=== PATIENT | male | born 1980 | race American Indian/Alaskan Native ===

== ENCOUNTER 2016-08-14 02:36 | Emergency (ER) | payer MEDICAID ==
[2016-08-14 02:55] VITALS: BP 136/78; PULSE 96; RESP 16; TEMP 98.7; O2SAT 98
--- NOTE | 2016-08-14 03:21 | ED PDOC ---
HPI: Abdomen Time Seen by Provider: 08/14/16 02:41 Chief Complaint (Nursing): Abdominal Pain Chief Complaint (Provider): Abdominal pain, vomiting History Per: Patient History/Exam Limitations: no limitations Onset/Duration Of Symptoms: Days (x3days) Current Symptoms Are (Timing): Still Present Associated Symptoms: Nausea, Vomiting, Diarrhea Additional Complaint(s): Kurt Yadav is a 35 y/o male who presents to the ED from work for evaluation of vomiting along with some associated episodes of abdominal pain(has since resolved) nausea and diarrhea. Patient reports 3 days ago he ate something bad and has since been experiencing an upset stomach. Denies any other associated symptoms. Of note, patient is asking for medication to control the nausea. Past Medical History Reviewed: Historical Data, Nursing Documentation, Vital Signs Vital Signs: Last Vital Signs Temp 98.7 F 08/14/16 02:53 Pulse 96 H 08/14/16 02:53 Resp 16 08/14/16 02:53 BP 136/78 08/14/16 02:53 Pulse Ox 98 08/14/16 04:16 - Medical History PMH: No Chronic Diseases - Surgical History Surgical History: No Surg Hx - Family History Family History: States: Unknown Family Hx - Immunization History Hx Tetanus Toxoid Vaccination: No Hx Influenza Vaccination: No Hx Pneumococcal Vaccination: No - Home Medications Home Medications: Ambulatory Orders Medication Instructions Recorded Diphenhydramine HCl 50 mg PO QPM #20 cap 11/01/13 [Diphenhydramine] Clotrimazole 1% Cream [Lotrimin 1%] 1 applic TP BID #1 bottle 07/22/15 Ondansetron [Zofran] 4 mg PO Q8H #12 tab 08/14/16 - Allergies Allergies/Adverse Reactions: Allergies Allergy/AdvReac Type Severity Reaction Status Date / Time No Known Allergies Allergy Verified 08/14/16 02:52 Review of Systems ROS Statement: Except As Marked, All Systems Reviewed And Found Negative Gastrointestinal: Positive for: Nausea, Vomiting, Abdominal Pain (Has since resolved), Diarrhea. Negative for: Hematemesis Physical Exam - Reviewed Nursing Documentation Reviewed: Yes Vital Signs Reviewed: Yes - Physical Exam Appears: Positive for: Well, Non-toxic, No Acute Distress Head Exam: Positive for: ATRAUMATIC, NORMAL INSPECTION, NORMOCEPHALIC Skin: Positive for: Normal Color, Warm, Dry Eye Exam: Positive for: Normal appearance, EOMI, PERRL ENT: Positive for: Normal ENT Inspection Neck: Positive for: Normal Cardiovascular/Chest: Positive for: Regular Rate, Rhythm. Negative for: Murmur , Tachycardia Respiratory: Positive for: Normal Breath Sounds. Negative for: Wheezing, Respiratory Distress Gastrointestinal/Abdominal: Positive for: Normal Exam, Soft. Negative for: Tenderness Rectal: Negative for: Black Stool, Blood Streaked Stool Extremity: Positive for: Normal ROM Neurologic/Psych: Positive for: Alert, Oriented, Other (Sleeping in room) Comments: Obese - ECG O2 Sat by Pulse Oximetry: 98 (RA) Pulse Ox Interpretation: Normal Medical Decision Making Medical Decision Making: Time: 0241: Initial Impression: Gastroenteritis Initial Plan: * Zofran 4mg PO Stat * Re-Eval Scribe Attestation: Documented by Garima Cruz acting as a scribe for Saroj Che MD. Provider Scribe Attestation: All medical record entries made by the Scribe were at my direction and personally dictated by me. I have reviewed the chart and agree that the record accurately reflects my personal performance of the history, physical exam, medical decision making, and the department course for this patient. I have also personally directed, reviewed, and agree with the discharge instructions and disposition. Time: 0414: Upon provider reevaluation patient is feeling better, tolerating PO, is medically stable, and requires no further treatment in the ED at this time. Patient will be discharged home with return precautions. Counseling was provided and all questions were answered regarding diagnosis. There is agreement to discharge plan. Return if symptoms persist or worsen. Disposition - Clinical Impression Clinical Impression: Nausea and vomiting - Disposition Referrals: [facility] [Outside] Disposition Time: 04:15 Condition: STABLE Prescriptions: Ondansetron [Zofran] 4 mg PO Q8H #12 tab Instructions: Gastroenteritis (ED), Acute Nausea and Vomiting (ED) Forms: [facility] ED School/Work Excuse
== END 2016-08-14 04:21 | disposition home or self-care (01) ==
LOC: H.ER 02:36
DX: R11.2 Nausea with vomiting, unspecified (principal); R10.9 Unspecified abdominal pain

== ENCOUNTER 2016-10-22 19:01 | Emergency (ER) | payer MEDICAID ==
[2016-10-22 19:11] VITALS: BP 134/74; PULSE 96; RESP 16; TEMP 98.9; O2SAT 99
--- NOTE | 2016-10-22 19:47 | ED PDOC ---
Lower Extremity Pain/Injury Time Seen by Provider: 10/22/16 19:57 Chief Complaint (Nursing): Lower Extremity Problem/Injury Chief Complaint (Provider): Right Ankle Pain History/Exam Limitations: no limitations Current Symptoms Are (Timing): Still Present Additional Complaint(s): Kurt Yadav, a 36 year old male, presents to the ED complaining of non radiating right ankle pain x3 weeks. The patient states that the pain is worse in the morning but eases up after he has been walking for a while. He states that the pain worsens at night. Denies radiation, swelling. Past Medical History Reviewed: Historical Data, Nursing Documentation, Vital Signs Vital Signs: Last Vital Signs Temp 98.9 F 10/22/16 19:08 Pulse 96 H 10/22/16 19:08 Resp 16 10/22/16 19:08 BP 134/74 10/22/16 19:08 Pulse Ox 99 10/22/16 19:08 - Medical History PMH: No Chronic Diseases - Family History Family History: States: Unknown Family Hx - Immunization History Hx Tetanus Toxoid Vaccination: No Hx Influenza Vaccination: No Hx Pneumococcal Vaccination: No - Home Medications Home Medications: Ambulatory Orders Medication Instructions Recorded Diphenhydramine HCl 50 mg PO QPM #20 cap 11/01/13 [Diphenhydramine] Clotrimazole 1% Cream [Lotrimin 1%] 1 applic TP BID #1 bottle 07/22/15 Ondansetron [Zofran] 4 mg PO Q8H #12 tab 08/14/16 - Allergies Allergies/Adverse Reactions: Allergies Allergy/AdvReac Type Severity Reaction Status Date / Time No Known Allergies Allergy Verified 08/14/16 02:52 Review of Systems Musculoskeletal: Positive for: Other (Right Ankle Pain; No swelling.) Physical Exam - Reviewed Nursing Documentation Reviewed: Yes Vital Signs Reviewed: Yes - Physical Exam Appears: Positive for: Non-toxic, No Acute Distress Head Exam: Positive for: ATRAUMATIC, NORMAL INSPECTION, NORMOCEPHALIC Skin: Positive for: Normal Color, Warm, Dry Eye Exam: Positive for: Normal appearance, EOMI, PERRL ENT: Positive for: Normal ENT Inspection Neck: Positive for: Normal, Painless ROM, Supple Cardiovascular/Chest: Positive for: Regular Rate, Rhythm, Chest Non Tender. Negative for: Tachycardia Respiratory: Positive for: Normal Breath Sounds. Negative for: Wheezing, Respiratory Distress Gastrointestinal/Abdominal: Positive for: Normal Exam, Bowel Sounds, Soft. Negative for: Guarding, Rebound Back: Positive for: Normal Inspection. Negative for: L CVA Tenderness, R CVA Tenderness Extremity: Positive for: Normal ROM, Other (Tenderness to plantar fascia; No swelling, No malleolus tenderness or deformity; no calf tenderness.). Negative for: Tenderness, Deformity, Swelling Neurologic/Psych: Positive for: Alert, Oriented, Gait - ECG O2 Sat by Pulse Oximetry: 99 (RA) Pulse Ox Interpretation: Normal Medical Decision Making Medical Decision Making: Initial Impression: 36year old male presenting with right ankle pain Initial Plan: * RAD Right Foot * Reevaluation Pt dx with plantar fascitis and will need f.u with pmd/podiatry clinic. Scribe Attestation Documented by Leann Freitas acting as a scribe for Claire Betancourt PA-C. Scribe Attestation All medical record entries made by the Scribe were at my direction and personally dictated by me. I have reviewed the chart and agree that the record accurately reflects my personal performance of the history, physical exam, medical decision making, and the department course for this patient. I have also personally directed, reviewed, and agree with the discharge instructions and disposition. Disposition - Clinical Impression Clinical Impression: Plantar fasciitis - Patient ED Disposition Is Patient to be Admitted: No Counseled Patient/Family Regarding: Diagnosis, Need For Followup, Rx Given - Disposition Referrals: Podiatry Clinic [Outside] Disposition: Routine/Home Disposition Time: 20:00 Condition: STABLE Instructions: Plantar Fasciitis (ED) Forms: [employer] (Azeri), [facility] School/Work Excuse
[2016-10-22] MEDS ORDERED: MethylPREDNISolone Depo 40 mg/ml Inj IM ONE (20:21)
[2016-10-22] MEDS ORDERED: Lidocaine 1% Inj (20ml) IJ ONE (20:21)
[2016-10-22] MEDS ORDERED: Lidocaine 1% Inj (20ml) ONE (20:24)
[2016-10-22] MEDS ORDERED: MethylPREDNISolone Depo 40 mg/ml Inj ONE (20:24)
--- NOTE | 2016-10-22 23:18 | CP.PCM.CON ---
History of Present Illness - History of Present Illness History of Present Illness: 36 year old obese male with no PMH present to the ED for right foot pain. States pain started 3 weeks ago. Don't recall any traumatic events. Describes pain as pin and needles at the plantar right heel. Worse with first step in the morning. Rate pain 8/10 that stays localized at the plantar heel. Reports recent increase in activity at the gym. Patient states he is trying to lose weight. States that soaking feet in Epsom salt has helped and resting. First time seen for this problem. 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 States that he works to work daily from [place] to [place]. 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, temperature gradient WNL, digit hair present x10, no edema noted b/ Ortho: severe pain with palpation of the medical tubercle of calcaneus, pain with palpation of proximal plantar fasciitis insertion Derm: well hydrated, no lesions, toenails WNL, Derm WNL - Neurological Exam Neurological exam: Alert, Oriented x3 - Psychiatric Exam Psychiatric exam: Normal Affect, Normal Mood Results - Vital Signs Recent Vital Signs: Last Vital Signs Temp 98.9 F 10/22/16 19:08 Pulse 96 H 10/22/16 19:08 Resp 16 10/22/16 19:08 BP 134/74 10/22/16 19:08 Pulse Ox 99 10/22/16 20:05 Assessment & Plan - Assessment and Plan (Free Text) Assessment: 36 year old obese male with no PMH present to the ED for R plantar fasciitis Plan: Patient was examined in the ED Vitals and charts reviewed- afebrile Plan discussed in detail with attending, Dr. Waite Educated on proper shoe gear Consider custom made orthotics Educated on RICE protocol Demonstrated stretching exercises, instructed to do daily 3x day Injection mix consisted of .5 cc depo 40 and 2.5 cc of 1% lidocaine plain was injected where pt reports most pain medial approach R heel. Procedure was explained in detail. Skin prep with alcohol. Tolerate procedure well with no complications Patient verbally consented with all risks, benefits, and complications explained. Pt to WBAT in surgical shoe Rx Naproxen for pain F/U in podiatry clinic in 1 week Thank you for the consult
--- NOTE | 2016-10-23 07:13 | RAD ---
PROCEDURE: Right Foot Radiographs. HISTORY: foot pain COMPARISON: None. FINDINGS: BONES: No fracture identified. Small Achilles calcaneal enthesophyte. JOINTS: No dislocation seen. Mild degenerative changes at the 1st MTP joint. SOFT TISSUES: Unremarkable OTHER FINDINGS: None. IMPRESSION: No fracture or dislocation identified. Mild degenerative changes at the 1st MTP joint.
== END 2016-10-22 20:45 | disposition home or self-care (01) ==
LOC: H.ER 19:01
DX: M72.2 Plantar fascial fibromatosis (principal)

== ENCOUNTER 2016-12-24 18:53 | Emergency (ER) | payer MEDICAID ==
[2016-12-24 18:59] VITALS: BP 133/79; PULSE 99; RESP 16; TEMP 99.8; O2SAT 100
--- NOTE | 2016-12-24 19:18 | ED PDOC ---
Lower Extremity Pain/Injury Time Seen by Provider: 12/24/16 19:10 Chief Complaint (Nursing): Lower Extremity Problem/Injury Chief Complaint (Provider): Lower Extremity Problem History/Exam Limitations: no limitations Onset/Duration Of Symptoms: Persistent Current Symptoms Are (Timing): Still Present Additional Complaint(s): 36 year old male presents to ED with complaints of right foot pain x1 month and was diagnosed with plantar fasciitis. 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 States that he does have steroid injections. (+) right heel pain. Requests a note for 2 days off from work. PCP: None Past Medical History Reviewed: Historical Data, Nursing Documentation, Vital Signs Vital Signs: Last Vital Signs Temp 99.8 F H 12/24/16 18:54 Pulse 99 H 12/24/16 18:54 Resp 16 12/24/16 18:54 BP 133/79 12/24/16 18:54 Pulse Ox 100 12/24/16 18:54 - Medical History Other PMH: plantar fasciitis - Family History Family History: States: Unknown Family Hx - Social History Ex-Smoker (has not smoked in the last 12 months): No Alcohol: None Drugs: Denies - Immunization History Hx Tetanus Toxoid Vaccination: No Hx Influenza Vaccination: No Hx Pneumococcal Vaccination: No - Home Medications Home Medications: Ambulatory Orders Medication Instructions Recorded Diphenhydramine HCl 50 mg PO QPM #20 cap 11/01/13 [Diphenhydramine] Clotrimazole 1% Cream [Lotrimin 1%] 1 applic TP BID #1 bottle 07/22/15 Ondansetron [Zofran] 4 mg PO Q8H #12 tab 08/14/16 Naproxen 1 tab PO Q12 PRN #14 tab 12/24/16 - Allergies Allergies/Adverse Reactions: Allergies Allergy/AdvReac Type Severity Reaction Status Date / Time No Known Allergies Allergy Verified 08/14/16 02:52 Wells Criteria for PE - Wells Criteria for Pulmonary Embolism Heart Rate >100: No Immobilization at least 3 days;Surgery previous 4 weeks: No Previous, objectively diagnosed PE or DVT: No Hemoptysis: No Malignancy w/treatment within 6 months, or palliative: No Total Score: 0 Review of Systems ROS Statement: Except As Marked, All Systems Reviewed And Found Negative Musculoskeletal: Positive for: Foot Pain (right heel pain) Physical Exam - Reviewed Nursing Documentation Reviewed: Yes Vital Signs Reviewed: Yes - Physical Exam Respiratory: Negative for: Respiratory Distress Extremity: Positive for: Normal ROM, Tenderness (right foot tenderness). Negative for: Deformity - ECG O2 Sat by Pulse Oximetry: 100 (RA) Pulse Ox Interpretation: Normal Medical Decision Making Medical Decision Makin Initial impression: right heel pain Initial plan: Scribe Attestation: Documented by Megha Alvarez, acting as a scribe for Ashley Velarde PA-C. Provider Scribe Attestation: All medical record entries made by the Scribe were at my direction and personally dictated by me. I have reviewed the chart and agree that the record accurately reflects my personal performance of the history, physical exam, medical decision making, and the department course for this patient. I have also personally directed, reviewed, and agree with the discharge instructions and disposition. Disposition - Clinical Impression Clinical Impression: Plantar fasciitis - Patient ED Disposition Is Patient to be Admitted: No - Disposition Referrals: Podiatry Clinic [Outside] Disposition: Routine/Home Disposition Time: 19:11 Condition: FAIR Prescriptions: Naproxen 1 tab PO Q12 PRN #14 tab PRN Reason: Pain, Moderate (4-7) Instructions: Plantar Fasciitis (ED) Forms: [employer] (Belarusian), [facility] ED School/Work Excuse
== END 2016-12-24 20:10 | disposition home or self-care (01) ==
LOC: H.ER 18:53
DX: M72.2 Plantar fascial fibromatosis (principal)

== ENCOUNTER 2017-03-01 14:18 | Emergency (ER) | payer SELFPAY ==
[2017-03-01 14:31] VITALS: BMI 43.4
--- NOTE | 2017-03-01 14:51 | ED PDOC ---
Lower Extremity Pain/Injury Time Seen by Provider: 03/01/17 14:38 Chief Complaint (Nursing): Lower Extremity Problem/Injury Chief Complaint (Provider): Lower Extremity Problem History Per: Patient History/Exam Limitations: no limitations Onset/Duration Of Symptoms: Persistent Current Symptoms Are (Timing): Still Present Additional Complaint(s): 36 year old male presents to ED with complaints of a lower extremity problem and was diagnosed x4 months ago with plantar fasciitis. Patient notes that he has been unable to see his PCP recently due to his work schedule and requests pain medication in the interim. Notes pain to the dorsal aspect and heel of right foot. Confirms that he consistently stands for work. (-) calf pain or leg pain. PCP: Past Medical History Reviewed: Historical Data, Nursing Documentation, Vital Signs - Medical History Other PMH: plantar fasciitis - Surgical History Surgical History: No Surg Hx - Family History Family History: States: Unknown Family Hx - Immunization History Hx Tetanus Toxoid Vaccination: No Hx Influenza Vaccination: No Hx Pneumococcal Vaccination: No - Home Medications Home Medications: Ambulatory Orders Medication Instructions Recorded Diphenhydramine HCl 50 mg PO QPM #20 cap 11/01/13 [Diphenhydramine] Clotrimazole 1% Cream [Lotrimin 1%] 1 applic TP BID #1 bottle 07/22/15 Ondansetron [Zofran] 4 mg PO Q8H #12 tab 08/14/16 Naproxen 1 tab PO Q12 PRN #14 tab 12/24/16 Footcare,Miscellaneous [Plantar 1 each MC DAILY #1 each 03/01/17 Fasciitis Arch Sleeve] Naproxen 500 mg PO BID #30 tablet. 03/01/17 - Allergies Allergies/Adverse Reactions: Allergies Allergy/AdvReac Type Severity Reaction Status Date / Time No Known Allergies Allergy Verified 08/14/16 02:52 Review of Systems ROS Statement: Except As Marked, All Systems Reviewed And Found Negative Musculoskeletal: Positive for: Foot Pain (right dorsal aspect and heel pain). Negative for: Other ((-) calf pain) Physical Exam - Reviewed Nursing Documentation Reviewed: Yes Vital Signs Reviewed: Yes - Physical Exam Appears: Positive for: Non-toxic, No Acute Distress Skin: Positive for: Normal Color, Warm, Dry Respiratory: Negative for: Respiratory Distress Extremity: Positive for: Normal ROM, Tenderness ((+) right heel tenderness. (-) plantar fascia tenderness). Negative for: Deformity Neurologic/Psych: Positive for: Alert, Oriented. Negative for: Motor/Sensory Deficits Medical Decision Making Medical Decision Makin Initial impression: plantar fasciitis Initial plan: * Motrin 600mg PO * Re-evaluation 1555 Upon re-evaluation patient is feeling better. Dx: plantar fasciitis Scribe Attestation: Documented by Megha Alvarez, acting as a scribe for Claire Betancourt PA-C. Provider Scribe Attestation: All medical record entries made by the Scribe were at my direction and personally dictated by me. I have reviewed the chart and agree that the record accurately reflects my personal performance of the history, physical exam, medical decision making, and the department course for this patient. I have also personally directed, reviewed, and agree with the discharge instructions and disposition. Disposition - Clinical Impression Clinical Impression: Plantar fasciitis - Disposition Referrals: [facility] [Outside] Podiatry Clinic [Outside] Disposition: Routine/Home Disposition Time: 15:55 Condition: STABLE Prescriptions: Footcare,Miscellaneous [Plantar Fasciitis Arch Sleeve] 1 each MC DAILY #1 each Naproxen 500 mg PO BID #30 tablet. Instructions: Plantar Fasciitis (ED) Forms: [facility] (Martiniquais)
[2017-03-01 15:05] VITALS: TEMP 98.4; O2SAT 96
[2017-03-01 15:57] VITALS: BP 148/92; PULSE 88; RESP 20
== END 2017-03-01 15:55 | disposition home or self-care (01) ==
LOC: H.ER 14:18
DX: M72.2 Plantar fascial fibromatosis (principal)

== ENCOUNTER 2017-04-19 18:30 | Emergency (ER) | payer SELFPAY ==
[2017-04-19 18:31] VITALS: BMI 43.4
[2017-04-19 19:57] VITALS: BP 148/102; PULSE 84; RESP 18; TEMP 97.7; O2SAT 97
--- NOTE | 2017-04-19 21:25 | ED PDOC ---
Lower Extremity Pain/Injury Time Seen by Provider: 04/19/17 20:12 Chief Complaint (Nursing): Lower Extremity Problem/Injury Chief Complaint (Provider): Right foot pain History Per: Patient History/Exam Limitations: no limitations Onset/Duration Of Symptoms: Persistent Current Symptoms Are (Timing): Still Present Additional History Per: Patient Additional Complaint(s): 36yo male with 3 month history of atraumatic right foot pain, presents with complaint of right foot pain. He was diagnosed with plantar fascitis and states he exercises at home but does not take any medications for his pain. He denies any new trauma, injuries, numbness or tingling. Past Medical History Reviewed: Historical Data, Nursing Documentation, Vital Signs Vital Signs: Last Vital Signs Temp 97.7 F 04/19/17 19:54 Pulse 84 04/19/17 19:54 Resp 18 04/19/17 19:54 BP 148/102 H 04/19/17 19:54 Pulse Ox 97 04/19/17 19:54 - Medical History PMH: No Chronic Diseases - Surgical History Surgical History: No Surg Hx - Family History Family History: States: Unknown Family Hx - Immunization History Hx Tetanus Toxoid Vaccination: No Hx Influenza Vaccination: No Hx Pneumococcal Vaccination: No - Home Medications Home Medications: Ambulatory Orders Medication Instructions Recorded Diphenhydramine HCl 50 mg PO QPM #20 cap 11/01/13 [Diphenhydramine] Clotrimazole 1% Cream [Lotrimin 1%] 1 applic TP BID #1 bottle 07/22/15 Ondansetron [Zofran] 4 mg PO Q8H #12 tab 08/14/16 Naproxen 1 tab PO Q12 PRN #14 tab 12/24/16 Footcare,Miscellaneous [Plantar 1 each MC DAILY #1 each 03/01/17 Fasciitis Arch Sleeve] Naproxen 500 mg PO BID #30 tablet. 03/01/17 Meloxicam [Mobic] 15 mg PO DAILY PRN #14 tab 04/19/17 - Allergies Allergies/Adverse Reactions: Allergies Allergy/AdvReac Type Severity Reaction Status Date / Time No Known Allergies Allergy Verified 04/19/17 19:57 Review of Systems ROS Statement: Except As Marked, All Systems Reviewed And Found Negative Musculoskeletal: Positive for: Foot Pain (right) Neurological: Negative for: Weakness, Numbness Physical Exam - Reviewed Nursing Documentation Reviewed: Yes Vital Signs Reviewed: Yes - Physical Exam Appears: Positive for: Non-toxic Skin: Positive for: Normal Color Neck: Positive for: Supple Cardiovascular/Chest: Positive for: Regular Rate, Rhythm Pulses-Dorsalis Pedis (R): 2+ Extremity: Positive for: Normal ROM, Capillary Refill (< 2 seconds). Negative for: Tenderness (no tenderness noted to right foot), Calf Tenderness, Deformity , Swelling Neurologic/Psych: Positive for: Alert, Oriented. Negative for: Motor/Sensory Deficits - ECG O2 Sat by Pulse Oximetry: 97 (RA) Pulse Ox Interpretation: Normal Medical Decision Making Medical Decision Making: Impression: Chronic right foot pain Plan: -- Patient given instructions to follow up with podiatry clinic and is stable for discharge home. Scribe Attestation: Documented by Krys Maloney acting as a scribe for DAVID Davis Provider Attestation: All medical record entries made by the Scribe were at my direction and personally dictated by me. I have reviewed the chart and agree that the record accurately reflects my personal performance of the history, physical exam, medical decision making, and the department course for this patient. I have also personally directed, reviewed, and agree with the discharge instructions and disposition. Disposition - Clinical Impression Clinical Impression: Foot pain - Disposition Referrals: Podiatry Clinic [Outside] Disposition: Routine/Home Disposition Time: 20:30 Condition: STABLE Additional Instructions: Follow up with podiatry clinic for further evaluation. Prescriptions: Meloxicam [Mobic] 15 mg PO DAILY PRN #14 tab PRN Reason: Pain Instructions: Plantar Fasciitis (ED) Forms: [employer] (Surinamese), [facility] ED School/Work Excuse
== END 2017-04-19 20:54 | disposition home or self-care (01) ==
LOC: H.ER 18:30
DX: G89.29 Other chronic pain (principal)

== ENCOUNTER 2017-05-24 01:24 | Emergency (ER) | payer OTHER ==
[2017-05-24 01:24] VITALS: BMI 43.4
[2017-05-24 01:34] VITALS: O2SAT 98
--- NOTE | 2017-05-24 02:03 | ED PDOC ---
Lower Extremity Pain/Injury Time Seen by Provider: 05/24/17 01:31 Chief Complaint (Nursing): Lower Extremity Problem/Injury Chief Complaint (Provider): right ankle/foot injury History Per: Patient History/Exam Limitations: no limitations Onset/Duration Of Symptoms: Hrs (1) Current Symptoms Are (Timing): Still Present Additional Complaint(s): 36 y/o male brought in by EMS for evaluation of right foot/ankle pain sustained prior to arrival. Patient was at work walking down a flight of steps when his right foot "Gave out", causing him to skip 3 steps and then land with full body weight on right foot. Patient states he was not able to bear weight afterwards. Denies numbness/weakness right lower extremity, limitation of movement. Past Medical History Reviewed: Historical Data, Nursing Documentation, Vital Signs Vital Signs: Last Vital Signs Temp 97.4 F L 05/24/17 01:32 Pulse 88 05/24/17 01:32 Resp 18 05/24/17 01:32 BP 103/69 05/24/17 01:32 Pulse Ox 98 05/24/17 01:32 - Medical History PMH: No Chronic Diseases - Surgical History Surgical History: No Surg Hx - Family History Family History: States: Unknown Family Hx - Immunization History Hx Tetanus Toxoid Vaccination: No Hx Influenza Vaccination: No Hx Pneumococcal Vaccination: No - Home Medications Home Medications: Ambulatory Orders Medication Instructions Recorded Diphenhydramine HCl 50 mg PO QPM #20 cap 11/01/13 [Diphenhydramine] Clotrimazole 1% Cream [Lotrimin 1%] 1 applic TP BID #1 bottle 07/22/15 Ondansetron [Zofran] 4 mg PO Q8H #12 tab 08/14/16 Naproxen 1 tab PO Q12 PRN #14 tab 12/24/16 Footcare,Miscellaneous [Plantar 1 each MC DAILY #1 each 03/01/17 Fasciitis Arch Sleeve] Naproxen 500 mg PO BID #30 tablet. 03/01/17 Meloxicam [Mobic] 15 mg PO DAILY PRN #14 tab 04/19/17 - Allergies Allergies/Adverse Reactions: Allergies Allergy/AdvReac Type Severity Reaction Status Date / Time No Known Allergies Allergy Verified 05/24/17 01:32 Review of Systems ROS Statement: Except As Marked, All Systems Reviewed And Found Negative Musculoskeletal: Positive for: Foot Pain (right ankle, right foot) Physical Exam - Reviewed Nursing Documentation Reviewed: Yes Vital Signs Reviewed: Yes - Physical Exam Appears: Positive for: Well, Non-toxic, No Acute Distress Pulses-Dorsalis Pedis (L): 2+ Pulses-Dorsalis Pedis (R): 2+ Pulses-Post. Tibialis (L): 2+ Pulses-Post. Tibialis (R): 2+ Extremity: Positive for: Normal ROM, Tenderness (right medial malleolus with, right proximal 1-3 metatarsals with mild edema. FROM. Distal NV, motor intact) , Capillary Refill (<2 sec b/l LE) Neurologic/Psych: Positive for: Alert, Oriented. Negative for: Motor/Sensory Deficits - ECG O2 Sat by Pulse Oximetry: 98 - Other Rad xray right foot X-Ray: Viewed By Me X-Ray Interpretation: no acute findings xray right ankle X-Ray: Viewed By Me X-Ray Interpretation: no acute findings - Progress ED Course And Treament: xrays, ice, ibuprofen Patient educated on findings, right foot wrapped in SVETLANA, air cast applied. Patient declines crutches at this time. advised RICE. NSAIDs. Follow up podiatry. Return precautions given. Disposition - Clinical Impression Clinical Impression: Injury of ankle and foot - Patient ED Disposition Is Patient to be Admitted: No Counseled Patient/Family Regarding: Studies Performed, Diagnosis, Need For Followup - Disposition Disposition: Routine/Home Disposition Time: 04:03 Condition: STABLE Instructions: Foot Sprain (DC), Ankle Sprain Forms: [employer] ED School/Work Excuse
[2017-05-24 05:44] VITALS: BP 122/77; PULSE 84; RESP 17; TEMP 98
--- NOTE | 2017-05-24 08:53 | RAD ---
PROCEDURE: Right Ankle Radiographs. HISTORY: injury, pain COMPARISON: None FINDINGS: BONES: No acute fracture or destructive bony lesion identified. JOINTS: Normal. No osteoarthritis. Ankle mortise maintained. Talar dome intact SOFT TISSUES: Normal. OTHER FINDINGS: None. IMPRESSION: Unremarkable right ankle radiographs.
--- NOTE | 2017-05-24 08:53 | RAD ---
PROCEDURE: Right Foot Radiographs. HISTORY: injury, pain COMPARISON: None. FINDINGS: BONES: No acute fracture or destructive bony lesion identified. JOINTS: Joint space narrowing and cortical sclerosis as well as limited osteophyte development are identified at the 1st metatarsal phalangeal joint compatible degenerative joint disease. SOFT TISSUES: Normal. OTHER FINDINGS: None. IMPRESSION: No acute fracture or dislocation. Degenerative joint changes are mild at the 1st metatarsophalangeal joint.
== END 2017-05-24 04:15 | disposition home or self-care (01) ==
LOC: H.ER 01:24
DX: S99.911A Unspecified injury of right ankle, initial encounter (principal); Y93.01 Activity, walking, marching and hiking

== ENCOUNTER 2017-05-28 06:21 | Emergency (ER) | payer OTHER ==
[2017-05-28 06:21] VITALS: BMI 43.4
[2017-05-28 07:00] VITALS: BP 129/86; PULSE 81; RESP 16; TEMP 98.3; O2SAT 100
--- NOTE | 2017-05-28 08:02 | ED PDOC ---
Lower Extremity Pain/Injury Time Seen by Provider: 05/28/17 07:21 Chief Complaint (Nursing): Lower Extremity Problem/Injury Chief Complaint (Provider): Foot Pain History Per: Patient History/Exam Limitations: no limitations Onset/Duration Of Symptoms: Days (x5) Current Symptoms Are (Timing): Still Present Additional Complaint(s): 36 year old male presents to ED with complaints of right foot pain x5 days and has no past medical history. Patient states he was seen in the ED 5 days ago after spraining his foot at work, but notes that the pain worsened last night after "being on his feet" the entire night. Confirms he is taking Motrin for the pain with minimal relief and took Motrin LEADER TIER. Denies following up with the podiatry referral provided during the last ED visit. PCP: None - Ankle/Foot Description Of Injury: Twisted Past Medical History Reviewed: Historical Data, Nursing Documentation, Vital Signs Vital Signs: Last Vital Signs Temp 98.3 F 05/28/17 06:54 Pulse 81 05/28/17 06:54 Resp 16 05/28/17 06:54 BP 129/86 05/28/17 06:54 Pulse Ox 100 05/28/17 06:54 - Medical History PMH: No Chronic Diseases - Family History Family History: States: Unknown Family Hx - Living Arrangements Living Arrangements: With Family - Immunization History Hx Tetanus Toxoid Vaccination: No Hx Influenza Vaccination: No Hx Pneumococcal Vaccination: No - Home Medications Home Medications: Ambulatory Orders Medication Instructions Recorded Diphenhydramine HCl 50 mg PO QPM #20 cap 11/01/13 [Diphenhydramine] Clotrimazole 1% Cream [Lotrimin 1%] 1 applic TP BID #1 bottle 07/22/15 Ondansetron [Zofran] 4 mg PO Q8H #12 tab 08/14/16 Naproxen 1 tab PO Q12 PRN #14 tab 12/24/16 Footcare,Miscellaneous [Plantar 1 each MC DAILY #1 each 03/01/17 Fasciitis Arch Sleeve] Meloxicam [Mobic] 15 mg PO DAILY PRN #14 tab 04/19/17 Naproxen 500 mg PO BID #30 tablet. 05/28/17 - Allergies Allergies/Adverse Reactions: Allergies Allergy/AdvReac Type Severity Reaction Status Date / Time No Known Allergies Allergy Verified 05/28/17 06:54 Wells Criteria for PE - Wells Criteria for Pulmonary Embolism Clinical Signs and Symptoms of DVT: No P.E is #1 Diagnosis, or Equally Likely: No Heart Rate >100: No Immobilization at least 3 days;Surgery previous 4 weeks: No Previous, objectively diagnosed PE or DVT: No Hemoptysis: No Malignancy w/treatment within 6 months, or palliative: No Total Score: 0 Review of Systems ROS Statement: Except As Marked, All Systems Reviewed And Found Negative Musculoskeletal: Positive for: Foot Pain (right foot pain) Physical Exam - Reviewed Nursing Documentation Reviewed: Yes Vital Signs Reviewed: Yes - Physical Exam Appears: Positive for: Non-toxic, No Acute Distress (Morbidly obese) Skin: Positive for: Normal Color, Warm, Dry Extremity: Positive for: Tenderness (tenderness to the dorsum of the right foot) . Negative for: Deformity Neurologic/Psych: Positive for: Alert, Oriented. Negative for: Motor/Sensory Deficits - ECG O2 Sat by Pulse Oximetry: 100 (RA) Pulse Ox Interpretation: Normal Medical Decision Making Medical Decision Makin Initial impression: foot sprain Initial plan: * Call podiatry resident XR RIGHT FOOT FINDINGS 05/24/2017 BONES: No acute fracture or destructive bony lesion identified. JOINTS: Joint space narrowing and cortical sclerosis as well as limited osteophyte development are identified at the 1st metatarsal phalangeal joint compatible degenerative joint disease. SOFT TISSUES: Normal. OTHER FINDINGS: None. IMPRESSION: No acute fracture or dislocation. Degenerative joint changes are mild at the 1st metatarsophalangeal joint. 0750 Discussed case with podiatry resident, who says patient can follow up at outpatient podiatry clinic. Patient is stable for discharge home with prescription for Naproxen and a note for work. Scribe Attestation: Documented by Megha Alvarez acting as a scribe Wilberto Ramos MD. Scribe Attestation: All medical record entries made by the Scribe were at my direction and personally dictated by me. I have reviewed the chart and agree that the record accurately reflects my personal performance of the history, physical exam, medical decision making, and the department course for this patient. I have also personally directed, reviewed, and agree with the discharge instructions and disposition. Disposition - Clinical Impression Clinical Impression: Sprain of foot, right - Patient ED Disposition Is Patient to be Admitted: No Counseled Patient/Family Regarding: Studies Performed, Diagnosis, Need For Followup - Disposition Referrals: Podiatry Clinic [Outside] Disposition: Routine/Home Disposition Time: 07:50 Condition: GOOD Additional Instructions: Follow up with podiatry clinic today. Take your medications as instructed. Return for worsening. Prescriptions: Naproxen 500 mg PO BID #30 tablet. Instructions: Foot Sprain (DC) Forms: [facility] ED School/Work Excuse
== END 2017-05-28 08:10 | disposition home or self-care (01) ==
LOC: H.ER 06:21
DX: M79.671 Pain in right foot (principal)

== ENCOUNTER 2017-11-21 23:25 | Emergency (ER) | payer SELFPAY ==
[2017-11-21 23:26] VITALS: BMI 43.4
[2017-11-21 23:35] VITALS: RESP 18; O2SAT 100
[2017-11-22] MEDS ORDERED: Naproxen 500 MG TAB PO ONE (00:20)
--- NOTE | 2017-11-22 00:26 | ED PDOC ---
Lower Extremity Pain/Injury Time Seen by Provider: 11/21/17 23:47 Chief Complaint (Nursing): Lower Extremity Problem/Injury Chief Complaint (Provider): right foot pain History Per: Patient History/Exam Limitations: no limitations Onset/Duration Of Symptoms: Days (2), Waxing/Waning Current Symptoms Are (Timing): Still Present Additional Complaint(s): 37 y/o male presents for evaluation of intermittent right foot pain x 2 days. Patient states he has been diagnosed with plantar fasciitis and pain feels similar. Also had previous fracture/ligamentous injury in same foot in past; was following with Dr. Khan. Patient states pain produced only with weight- bearing; states he was sent home from work today due to the pain and that he is mostly on his feet at work. Patient also notes possible bruising to area. Denies fever, numbness/weakness right lower extremity, new trauma, limitation of movement. Past Medical History Reviewed: Historical Data, Nursing Documentation, Vital Signs Vital Signs: Last Vital Signs Temp 98.4 F 11/21/17 23:32 Pulse 70 11/21/17 23:32 Resp 18 11/21/17 23:32 BP 148/102 H 11/21/17 23:32 Pulse Ox 100 11/21/17 23:32 - Medical History PMH: No Chronic Diseases - Surgical History Surgical History: No Surg Hx - Family History Family History: States: Unknown Family Hx - Immunization History Hx Tetanus Toxoid Vaccination: No Hx Influenza Vaccination: No Hx Pneumococcal Vaccination: No - Home Medications Home Medications: Ambulatory Orders Medication Instructions Recorded Diphenhydramine HCl 50 mg PO QPM #20 cap 11/01/13 [Diphenhydramine] Clotrimazole 1% Cream [Lotrimin 1%] 1 applic TP BID #1 bottle 07/22/15 Ondansetron [Zofran] 4 mg PO Q8H #12 tab 08/14/16 Naproxen 1 tab PO Q12 PRN #14 tab 12/24/16 Footcare,Miscellaneous [Plantar 1 each MC DAILY #1 each 03/01/17 Fasciitis Arch Sleeve] Meloxicam [Mobic] 15 mg PO DAILY PRN #14 tab 04/19/17 Naproxen 500 mg PO BID #30 tablet. 05/28/17 Naproxen [Naprosyn] 500 mg PO Q12 PRN #20 tablet 11/22/17 - Allergies Allergies/Adverse Reactions: Allergies Allergy/AdvReac Type Severity Reaction Status Date / Time No Known Allergies Allergy Verified 05/28/17 06:54 Review of Systems ROS Statement: Except As Marked, All Systems Reviewed And Found Negative Musculoskeletal: Positive for: Foot Pain (right) Physical Exam - Reviewed Nursing Documentation Reviewed: Yes Vital Signs Reviewed: Yes - Physical Exam Appears: Positive for: Well, Non-toxic, No Acute Distress Pulses-Dorsalis Pedis (L): 2+ Pulses-Dorsalis Pedis (R): 2+ Pulses-Post. Tibialis (L): 2+ Pulses-Post. Tibialis (R): 2+ Extremity: Positive for: Normal ROM, Tenderness (tender to palpate plantar right foot, medial aspect in arch. + localized ecchymosis noted. FROM. Distal NV /motor intact) - ECG O2 Sat by Pulse Oximetry: 100 - Other Rad xray right foot X-Ray: Viewed By Ct X-Ray Interpretation: no acute findings - Progress ED Course And Treament: Naproxen PO, xray Patient educated on findings, discharged with rx Naproxen Patient offered wrap/surgical shoe but states he has boot at home he will use Advised RICE Follow up Podiatry Return precautions given Disposition - Clinical Impression Clinical Impression: Foot pain, Plantar fasciitis - Patient ED Disposition Is Patient to be Admitted: No Counseled Patient/Family Regarding: Studies Performed, Diagnosis, Need For Followup, Rx Given - Disposition Referrals: Podiatry Clinic [Outside] Disposition: Routine/Home Disposition Time: 01:38 Condition: IMPROVED Prescriptions: Naproxen [Naprosyn] 500 mg PO Q12 PRN #20 tablet PRN Reason: Pain, Moderate (4-7) Instructions: Muscle and Bone Pain (DC), Plantar Fasciitis Exercises Forms: [facility] ED School/Work Excuse
[2017-11-22 02:19] VITALS: BP 146/87; PULSE 78; TEMP 98.3
--- NOTE | 2017-11-22 09:04 | RAD ---
Date of service: 11/22/2017 PROCEDURE: Right Foot Radiographs. HISTORY: Pain, plantar aspect COMPARISON: None. FINDINGS: BONES: Bone alignment and mineralization are normal. There is no acute displaced fracture or bone destruction. JOINTS: There is moderate degenerative osteoarthrosis in the 1st MTP joint. The remaining joint spaces are preserved. SOFT TISSUES: Normal. OTHER FINDINGS: None. IMPRESSION: No acute fracture or dislocation.
== END 2017-11-22 01:50 | disposition home or self-care (01) ==
LOC: H.ER 23:25
DX: M72.2 Plantar fascial fibromatosis (principal)

== ENCOUNTER 2017-11-25 14:57 | Emergency (ER) | payer SELFPAY ==
[2017-11-25 14:57] VITALS: BMI 43.4
[2017-11-25 15:49] VITALS: BP 134/87; PULSE 84; RESP 17; TEMP 97.3; O2SAT 97
[2017-11-25] MEDS ORDERED: Naproxen 500 MG TAB PO STA (16:00)
--- NOTE | 2017-11-25 16:04 | ED PDOC ---
HPI: General Adult Time Seen by Provider: 11/25/17 15:39 Chief Complaint (Nursing): Lower Extremity Problem/Injury Chief Complaint (Provider): right foot pain History Per: Patient History/Exam Limitations: no limitations Additional Complaint(s): 37 year old male with a history of chronic right foot plantar fasciitis presents to the ED for prescription refill. Patient reports he was given a prescription for Naproxen last week but lost it before he could fill the rx. He has been taking Motrin with little relief. Patient plans on following up with podiatry clinic this week but is requesting naprosyn refill today. PMD: None provided Past Medical History Reviewed: Historical Data, Nursing Documentation, Vital Signs Vital Signs: Last Vital Signs Temp 97.3 F L 11/25/17 15:45 Pulse 84 11/25/17 15:45 Resp 17 11/25/17 15:45 BP 134/87 11/25/17 15:45 Pulse Ox 97 11/25/17 16:07 - Medical History PMH: No Chronic Diseases - Family History Family History: States: No Known Family Hx - Living Arrangements Living Arrangements: With Family - Social History Current smoker - smoking cessation education provided: No Alcohol: None Drugs: Denies - Home Medications Home Medications: Ambulatory Orders Medication Instructions Recorded Diphenhydramine HCl 50 mg PO QPM #20 cap 11/01/13 [Diphenhydramine] Clotrimazole 1% Cream [Lotrimin 1%] 1 applic TP BID #1 bottle 07/22/15 Ondansetron [Zofran] 4 mg PO Q8H #12 tab 08/14/16 Naproxen 1 tab PO Q12 PRN #14 tab 12/24/16 Footcare,Miscellaneous [Plantar 1 each MC DAILY #1 each 03/01/17 Fasciitis Arch Sleeve] Meloxicam [Mobic] 15 mg PO DAILY PRN #14 tab 04/19/17 Naproxen 500 mg PO BID #30 tablet. 05/28/17 Naproxen [Naprosyn] 500 mg PO Q12 PRN #20 tablet 11/22/17 Naproxen [Naprosyn] 500 mg PO BID #20 tab 11/25/17 - Allergies Allergies/Adverse Reactions: Allergies Allergy/AdvReac Type Severity Reaction Status Date / Time No Known Allergies Allergy Verified 05/28/17 06:54 Review of Systems ROS Statement: Except As Marked, All Systems Reviewed And Found Negative Musculoskeletal: Positive for: Foot Pain (right) Physical Exam - Reviewed Nursing Documentation Reviewed: Yes Vital Signs Reviewed: Yes - Physical Exam Appears: Positive for: Well, Non-toxic, No Acute Distress Head Exam: Positive for: ATRAUMATIC, NORMAL INSPECTION, NORMOCEPHALIC Skin: Positive for: Normal Color Eye Exam: Positive for: Normal appearance Cardiovascular/Chest: Positive for: Regular Rate, Rhythm Respiratory: Positive for: Normal Breath Sounds. Negative for: Wheezing, Respiratory Distress Extremity: Positive for: Normal ROM (upper and lower extremities) Neurologic/Psych: Positive for: Alert, Oriented - ECG O2 Sat by Pulse Oximetry: 97 (RA) Pulse Ox Interpretation: Normal Medical Decision Making Medical Decision Making: Time: 1603 Initial Impression: 37 year old male with chronic right foot plantar fasciitis Initial Plan: --Patient will receive Naproxen in the ED, will be given a prescription for Naproxen and is advised to follow up with the podiatry clinic for an appointment. Scribe Attestation: Documented by Peri Allan, acting as a scribe for Abby Felipe PA-C. Provider Scribe Attestation: All medical record entries made by the Scribe were at my direction and personally dictated by me. I have reviewed the chart and agree that the record accurately reflects my personal performance of the history, physical exam, medical decision making, and the department course for this patient. I have also personally directed, reviewed, and agree with the discharge instructions and disposition. Disposition - Clinical Impression Clinical Impression: Plantar fasciitis of right foot - Patient ED Disposition Is Patient to be Admitted: No Counseled Patient/Family Regarding: Diagnosis, Need For Followup, Rx Given - Disposition Referrals: Podiatry Clinic [Outside] Disposition: Routine/Home Disposition Time: 16:14 Condition: STABLE Additional Instructions: Take prescription meds as directed. Follow up as soon as possible with podiatry clinic. Prescriptions: Naproxen [Naprosyn] 500 mg PO BID #20 tab Instructions: Plantar Fasciitis Exercises, Heel Pain (Caused by Plantar Fasciitis) Forms: [employer] (Hebrew)
[2017-11-25] MEDS ORDERED: Naproxen 500 MG TAB PO ONE (16:05)
== END 2017-11-25 16:27 | disposition home or self-care (01) ==
LOC: H.ER 14:57
DX: Z76.0 Encounter for issue of repeat prescription (principal); M72.2 Plantar fascial fibromatosis